=== PATIENT | female | born 1940 | race African-American/Black ===

== ENCOUNTER 2023-05-30 15:21 | Inpatient (IN) | payer OTHER, MEDICARE ==
[~2023-05-30] VITALS: Ht 162.6 cm; Wt 96.2 kg
[~2023-05-30 15:21] MED LIST: CHOL500037 PO; CLON2TAB11 PO; DONE10TA44 PO; FESO8TAB PO; GLU500 PO; HYDR25TA4 PO; METO-442 PO; POTA8TAB66 PO; ROSU40TA PO; SITA100T11 PO; SPIR25TA6 PO
[2023-05-30 15:30] VITALS: BP_SYST 142; PULSE 78; RESP 20; TEMP 98.3; O2SAT 98
[2023-05-30] MEDS ORDERED: IBUPROFEN 400 MG TABLET PO ONE (16:45)
[2023-05-30] MEDS ORDERED: ACETAMINOPHEN 500 MG TABLET PO ONE (16:45)
[2023-05-30] MEDS ORDERED: OXYCODONE/ACETAMINOPHEN 5-325 TABLET PO ONE (19:45)
[2023-05-30] MEDS ORDERED: HYDROcodone/ACETAMIN 5-325 MG TAB (NORCO/ VICODIN) PO PRN (21:15)
[2023-05-30] MEDS ORDERED: ACETAMINOPHEN 325 MG TABLET PO PRN (21:15)
[2023-05-30] MEDS ORDERED: INSULIN REGULAR, HUMAN 100 UNITS/ML, 3 ML VIAL (humuLIN R) SUBCUT PRN (21:15)
[2023-05-30] MEDS ORDERED: DEXTROSE 50% JECT 50 ML DISP.SYRIN IVP PRN (21:15)
[2023-05-30] MEDS ORDERED: ONDANSETRON HCL 4 MG/2 ML VIAL IVP PRN (21:15)
[2023-05-30] MEDS ORDERED: traMADol HCL HCL 50 MG TABLET (ULTRAM) PO PRN (21:15)
[2023-05-30] MEDS ORDERED: NALOXONE HCL 0.4 MG/ML AMP (NARCAN) IVP PRN (21:15)
[2023-05-30] MEDS ORDERED: LORazepam 2 MG/ML VIAL IVP PRN (21:15)
[2023-05-30] MEDS ORDERED: clonazePAM 0.5 MG TABLET PO PRN ×2 (22:30→23:00)
[2023-05-30 22:32] LABS: ANION GAP 6 (5-15); CALCIUM 9.9 mg/dL (8.4-11.0); CARBON DIOXIDE 31 mmol/L (23-29); CHLORIDE 101 mmol/L (98-107); CREATININE 1.15 mg/dL (0.55-1.30); GLUCOSE 150 mg/dL (74-106); POTASSIUM 3.1 mmol/L (3.5-5.1); SODIUM SERUM 138 mmol/L (136-145); UREA NITROGEN, BLOOD 14 mg/dL (8-21)
[2023-05-30] MEDS ORDERED: MORPHINE 4 MG INJ. 4 MG/ML VIAL IVP PRN (23:15)
[2023-05-30] MEDS ORDERED: MORPHINE 4 MG INJ. 4 MG/ML VIAL IVP ONE (23:15)
[2023-05-31] VITALS (7 sets, daily range): BP systolic 113–137; PULSE 59–69; RESP 16–18; TEMP 96.9–99.1; O2SAT 95–97
[2023-05-31 05:30] LABS: BASOPHILS # (AUTO) 0.1 K/uL (0.0-0.2); BASOPHILS % (AUTO) 0.8 % (0.0-2.0); EOSINOPHILS # (AUTO) 0.2 K/uL (0.0-0.4); EOSINOPHILS % (AUTO) 2.3 % (0.0-4.0); HEMOGLOBIN 11.9 g/dL (12.0-16.0); LYMPHOCYTES % (AUTO) 23.2 % (20.5-51.5); MEAN CORPUSCULAR HEMOGLOBIN 29 pg (27-31); MEAN CORPUSCULAR HGB CONC 32 % (32-36); MEAN CORPUSCULAR VOLUME 90 fL (79.0-98.0); MONOCYTES # (AUTO) 0.7 K/uL (0.0-1.0); MONOCYTES % (AUTO) 7.8 % (1.7-9.3); NEUTROPHILS # (AUTO) 5.6 K/uL (1.8-7.7); NEUTROPHILS % (AUTO) 65.9 % (40.0-70.0); PLATELET COUNT (AUTO) 200 K/uL (130-430); RED BLOOD CELL COUNT(AUTO) 4.13 MIL/uL (4.2-6.2); RED CELL DISTRIBUTION WIDTH 13.9 % (9.0-15.0); WHITE BLOOD COUNT (AUTO) 8.5 K/uL (4.8-10.8)
[2023-05-31 05:45] LABS: INR 1.1 (0.8-1.2); PROTHROMBIN TIME 11.3 SECS (9.5-12.5)
[2023-05-31 06:06] LABS: ALANINE AMINOTRANSFERASE 47 U/L (12-78); ALBUMIN 3.4 g/dL (3.4-4.8); ANION GAP 10 (5-15); ASPARTATE AMINOTRANSFERASE 36 U/L (10-37); CALCIUM 9.5 mg/dL (8.4-11.0); CARBON DIOXIDE 28 mmol/L (23-29); CHLORIDE 106 mmol/L (98-107); CREATININE 1.12 mg/dL (0.55-1.30); FREE T4 (FREE THYROXINE) 0.9 ng/dL (0.6-1.6); GLUCOSE 147 mg/dL (74-106); SODIUM SERUM 144 mmol/L (136-145); THYROID STIMULATING HORMONE 2.31 uIu/mL (0.34-4.82); TOTAL BILIRUBIN 0.6 mg/dL (0.0-1.0); TOTAL PROTEIN, SERUM 6.5 g/dL (6.4-8.3); UREA NITROGEN, BLOOD 14 mg/dL (8-21)
[2023-05-31 06:21] LABS: POTASSIUM 2.9 mmol/L (3.5-5.1)
[2023-05-31] MEDS ORDERED: POTASSIUM CHLORIDE 20 MEQ/PKT PACKET PO ONE (06:30)
[2023-05-31] MEDS: DONEPEZIL HCL 5 MG TABLET (ARICEPT) PO SCH (08:16)
[2023-05-31] MEDS: ATORVASTATIN 20 MG TABLET PO SCH (08:16)
[2023-05-31] MEDS: metFORMIN HCL 500 MG TABLET PO SCH ×3 (08:17→21:00)
[2023-05-31] MEDS: METOPROLOL TARTRATE 50 MG TABLET PO SCH ×2 (08:18→21:48)
[2023-05-31] MEDS: SPIRONOLACTONE 25 MG TABLET (ALDACTONE) PO SCH ×2 (08:21→21:44)
[2023-05-31] MEDS ORDERED: ROSUVASTATIN CALCIUM 5 MG/TAB (CRESTOR) PO SCH (09:00)
[2023-05-31] MEDS ORDERED: POTASSIUM CHLORIDE 20 MEQ TAB.PRT.SR PO ONE (13:00)
[2023-05-31] MEDS ORDERED: MORPHINE 4 MG INJ. 4 MG/ML VIAL IVP PRN (13:15)
[2023-05-31] MEDS ORDERED: NALOXONE HCL 0.4 MG/ML AMP (NARCAN) IVP PRN (13:15)
[2023-05-31] MEDS: CHOLECALCIFEROL (VITAMIN D3) 2,000 UNIT TABLET PO SCH (13:47)
[2023-05-31] MEDS: HYDROcodone/ACETAMIN 5-325 MG TAB (NORCO/ VICODIN) PO PRN ×2 (13:49→23:18)
[2023-05-31] MEDS: oxyBUTYnin chloride 5 MG TABLET PO SCH ×2 (15:07→21:47)
[2023-05-31] MEDS: RIVAROXABAN 15 MG TABLET PO SCH (17:46)
[2023-05-31] MEDS: POTASSIUM CHLORIDE 20 MEQ TAB.PRT.SR PO SCH (21:47)
[2023-05-31] MEDS: clonazePAM 0.5 MG TABLET PO PRN (22:32)
[2023-06-01 00:43] VITALS: BP_SYST 124; PULSE 61; RESP 18; TEMP 98.3; O2SAT 95
[2023-06-01 05:04] LABS: BASOPHILS # (AUTO) 0.1 K/uL (0.0-0.2); BASOPHILS % (AUTO) 0.7 % (0.0-2.0); EOSINOPHILS # (AUTO) 0.2 K/uL (0.0-0.4); EOSINOPHILS % (AUTO) 2.3 % (0.0-4.0); LYMPHOCYTES # (AUTO) 2.4 K/uL (1.0-5.5); LYMPHOCYTES % (AUTO) 27.7 % (20.5-51.5); MEAN CORPUSCULAR HEMOGLOBIN 29 pg (27-31); MEAN CORPUSCULAR HGB CONC 33 % (32-36); MEAN CORPUSCULAR VOLUME 89 fL (79.0-98.0); MONOCYTES # (AUTO) 0.7 K/uL (0.0-1.0); MONOCYTES % (AUTO) 7.8 % (1.7-9.3); NEUTROPHILS # (AUTO) 5.3 K/uL (1.8-7.7); NEUTROPHILS % (AUTO) 61.5 % (40.0-70.0); PLATELET COUNT (AUTO) 191 K/uL (130-430); RED BLOOD CELL COUNT(AUTO) 4.15 MIL/uL (4.2-6.2); RED CELL DISTRIBUTION WIDTH 14.1 % (9.0-15.0); WHITE BLOOD COUNT (AUTO) 8.6 K/uL (4.8-10.8)
[2023-06-01 05:24] LABS: ANION GAP 10 (5-15); CALCIUM 9.7 mg/dL (8.4-11.0); CARBON DIOXIDE 27 mmol/L (23-29); CHLORIDE 102 mmol/L (98-107); CREATININE 1.13 mg/dL (0.55-1.30); GLUCOSE 134 mg/dL (74-106); POTASSIUM 4.1 mmol/L (3.5-5.1); SODIUM SERUM 139 mmol/L (136-145); UREA NITROGEN, BLOOD 15 mg/dL (8-21)
[2023-06-01 08:07] VITALS: BP_SYST 133; PULSE 62; RESP 18; TEMP 97.2; O2SAT 96
[2023-06-01] MEDS: metFORMIN HCL 500 MG TABLET PO SCH ×2 (08:35→20:41)
[2023-06-01] MEDS: CHOLECALCIFEROL (VITAMIN D3) 2,000 UNIT TABLET PO SCH (08:45)
[2023-06-01] MEDS: SPIRONOLACTONE 25 MG TABLET (ALDACTONE) PO SCH ×2 (08:45→20:41)
[2023-06-01] MEDS: HYDROcodone/ACETAMIN 5-325 MG TAB (NORCO/ VICODIN) PO PRN ×3 (08:45→20:53)
[2023-06-01] MEDS: oxyBUTYnin chloride 5 MG TABLET PO SCH ×3 (08:45→20:41)
[2023-06-01] MEDS: ATORVASTATIN 20 MG TABLET PO SCH (08:46)
[2023-06-01] MEDS: POTASSIUM CHLORIDE 20 MEQ TAB.PRT.SR PO SCH (08:46)
[2023-06-01] MEDS: METOPROLOL TARTRATE 50 MG TABLET PO SCH ×2 (08:52→20:42)
[2023-06-01] MEDS: DONEPEZIL HCL 5 MG TABLET (ARICEPT) PO SCH (08:52)
[2023-06-01 12:00] VITALS: BP_SYST 131; PULSE 56; RESP 18; TEMP 98; O2SAT 98
[2023-06-01] MEDS ORDERED: RIVA15TA PO (14:56)
[2023-06-01] MEDS ORDERED: METF-379 PO (14:56)
[2023-06-01] MEDS ORDERED: BISACODYL 5 MG TABLET.DR (DULCOLAX) PO PRN (15:00)
[2023-06-01] MEDS: DOCUSATE SODIUM 250 MG CAPSULE PO SCH ×2 (15:33→20:41)
[2023-06-01 16:00] VITALS: BP_SYST 116; PULSE 46; RESP 18; TEMP 98.8; O2SAT 97
[2023-06-01] MEDS: RIVAROXABAN 15 MG TABLET PO SCH (17:46)
[2023-06-01 20:00] VITALS: BP_SYST 139; PULSE 79; RESP 18; TEMP 96.4; O2SAT 98
[2023-06-01] MEDS: clonazePAM 0.5 MG TABLET PO PRN (21:22)
[2023-06-02 00:14] VITALS: BP_SYST 132; PULSE 56; RESP 18; TEMP 97.6; O2SAT 98
[2023-06-02 08:00] VITALS: BP_SYST 122; PULSE 55; RESP 18; TEMP 98.6; O2SAT 96
[2023-06-02] MEDS: metFORMIN HCL 500 MG TABLET PO SCH (08:23)
[2023-06-02] MEDS: DONEPEZIL HCL 5 MG TABLET (ARICEPT) PO SCH (08:23)
[2023-06-02] MEDS: CHOLECALCIFEROL (VITAMIN D3) 2,000 UNIT TABLET PO SCH (08:24)
[2023-06-02] MEDS: METOPROLOL TARTRATE 50 MG TABLET PO SCH (08:24)
[2023-06-02] MEDS: oxyBUTYnin chloride 5 MG TABLET PO SCH ×2 (08:24→14:48)
[2023-06-02] MEDS: ATORVASTATIN 20 MG TABLET PO SCH (08:24)
[2023-06-02] MEDS: SPIRONOLACTONE 25 MG TABLET (ALDACTONE) PO SCH (08:25)
[2023-06-02] MEDS: DOCUSATE SODIUM 250 MG CAPSULE PO SCH (08:25)
[2023-06-02] MEDS: HYDROcodone/ACETAMIN 5-325 MG TAB (NORCO/ VICODIN) PO PRN (08:26)
[2023-06-02] MEDS ORDERED: POTASSIUM CHLORIDE 10 MEQ TAB.PRT.SR PO SCH (09:00)
[2023-06-02 12:07] VITALS: BP_SYST 128; PULSE 57; RESP 19; TEMP 98.1; O2SAT 97
[2023-06-02 16:21] VITALS: BP_SYST 126; PULSE 56; RESP 18; TEMP 98.8; O2SAT 94
[2023-06-02 16:39] VITALS: BP_SYST 124; PULSE 60; RESP 18; TEMP 98.3; O2SAT 97
== END 2023-06-02 17:30 | DRG 563 ==
LOC: SED 15:21 → STU 19:36
PROVIDERS: ADMIT Internal Medicine; ATTEND Internal Medicine
PROC: 2W3SX1Z Immobilization of Right Foot using Splint (ICD-10-PCS; principal; 2023-05-30)
DX: S82.61XA Displaced fracture of lateral malleolus of right fibula, initial encounter for closed fracture (principal); I10 Essential (primary) hypertension; E11.9 Type 2 diabetes mellitus without complications; E66.9 Obesity, unspecified; W18.39XA Other fall on same level, initial encounter; E87.6 Hypokalemia; G51.0 Bell's palsy; G47.33 Obstructive sleep apnea (adult) (pediatric); Z96.653 Presence of artificial knee joint, bilateral; Z88.1 Allergy status to other antibiotic agents; Z88.8 Allergy status to other drugs, medicaments and biological substances; Z79.899 Other long term (current) drug therapy; Z98.61 Coronary angioplasty status; Y99.8 Other external cause status; Y93.89 Activity, other specified; Y92.89 Other specified places as the place of occurrence of the external cause; Z68.36 Body mass index [BMI] 36.0-36.9, adult
CPT/HCPCS: 36415; 70450-TC; 71045; 73502; 73560-TC; 76376; 80048; 80053; 82962; 83037; 83735; 84439; 84443; 85025; 85610-TC; 85730-TC; 93005; 97110-GP; 97116-GP; 97530-GP; 99285; G0378; J2270